=== PATIENT | female | born 1965 | race Caucasian/White ===

== ENCOUNTER 2017-08-04 13:38 | Emergency (ER) ==
[2017-08-04 13:45] VITALS: BP 157/96; TEMP 98.4; BMI 25.8
--- NOTE | 2017-08-04 15:11 | ED.PDOC ---
General ED Provider: Dr. BRENTON MINA Chief Complaint: Respiratory Complaint Stated Complaint: Chest wall pain with dyspnea. Sudden onset yesterday. This morning symptoms worsened and had sensation of having difficulty taking deep breath.Sensation pressure on chest. Denies Nause or emesis Time Seen by Physician: 13:45 Mode of Arrival: Walk-In Information Source: Patient Exam Limitations: No limitations Nursing and Triage Documentation Reviewed and Agree: Yes Reviewed sepsis parameters & appropriate labs ordered?: Yes System Inflammatory Response Syndrome: Not Applicable Sepsis Protocol: For patient's 13 years and over: Temp is 96.8 and below OR 101 and greater Pulse >90 BPM Resp >20/minute Acutely Altered Mental Status Are patient's symptoms suggestive of a new infection, such as: -Pneumonia -Skin, Soft Tissue -Endocarditis -UTI -Bone, Joint Infection -Implantable Device -Acute Abdominal Infection -Wound Infection -Meningitis -Blood Stream Catheter Infection -Unknown System Inflammatory Response Syndrome: Not Applicable Musculoskeletal Complaint Exam - Shoulder Pain Complaint/Exam Mechanism of Injury: Reports: No known trauma Onset/Duration: YESTERDAY Symptoms Are: Still present Timing: Constant Initial Severity: Moderate Current Severity: Moderate Location: Reports: Diffuse (POSTERIOR LT SHOULDER REGION OF UPPER THORACIC PARASPINOUS MUSCULATURE) Character: Reports: Aching, Spasmodic Alleviating: Reports: None Aggravating: Reports: Movement Associated Signs and Symptoms: Denies: Swelling, Redness, Bruising, Fever, Weakness, Numbness, Tingling Related History: Denies: Similar episode DVT Risk Factors: Reports: None Septic Arthritis Risk Factors: Reports: None Related Surgical History: Reports: None Shoulder Findings: Absent: Swelling, Ecchymosis, Abnormal contour Tenderness: Present: Clavicle Differential Diagnoses: Other (THORACIC MUSCULAR SPASM AND STRAIN) Review of Systems - Review Of Systems Constitutional: Reports: No symptoms Eyes: Reports: No symptoms Ears, Nose, Mouth, Throat: Reports: No symptoms Respiratory: Reports: No symptoms, Short of air Cardiac: Reports: No symptoms, Chest pain, Palpitations. Denies: Irregular heart rate, Lightheadedness, Syncope GI: Reports: No symptoms : Reports: No symptoms Musculoskeletal: Reports: Back pain, Muscle pain Skin: Reports: No symptoms Neurological: Reports: No symptoms Endocrine: Reports: No symptoms Hematologic/Lymphatic: Reports: No symptoms All Other Systems: Reviewed and Negative Past Medical History - Past Medical History Endocrine: Reports: None Cardiovascular: Reports: None Respiratory: Reports: None Hematological: Reports: None Gastrointestinal: Reports: None Genitourinary: Reports: None Neuro/Psych: Reports: None Musculoskeletal: Reports: None Cancer: Reports: None Last Menstrual Period: NA - Surgical History General Surgical History: Reports: None - Family History Family History: Reports: Heart, Hypertension - Social History Smoking Status: Current every day smoker Hx Substance Use: No Alcohol Screening: Occasionally Physical Exam - Physical Exam Appearance: Ill-appearing Ill-appearing: Mild Pain Distress: Moderate Eyes: STARLA, EOMI, Conjunctiva clear ENT: Ears normal, Nose normal, Oropharynx normal Neck: Nonsupple Respiratory: Airway patent, Breath sounds clear, Breath sounds equal, Breath sounds diminished, Respirations nonlabored Cardiovascular: RRR, Pulses normal, No murmur GI/: Soft, Nontender, No masses, Bowel sounds normal, No Organomegaly Musculoskeletal: Normal strength (Tenderness to palpation of upper lt thoracic region with focal pain at lt T 3-4-and focal somatic dysfunction; tx with counterstrain with resolution of patients discomfort), ROM intact, No edema, No calf tenderness Skin: Warm, Dry, Normal color, Pale Procedures - Additional Procedures Additional Procedures: Other (OMT-Tenderness to palpation of upper lt thoracic region with focal pain at lt T 3-4-and focal somatic dysfunction; tx with counterstrain with resolution of patients discomfort) Critical Care Note - Critical Care Note Total Time (mins): 0 Course - Course Hematology/Chemistry: 08/04/17 15:39 08/04/17 15:39 Orders, Labs, Meds: Lab Review 08/04/17 08/04/17 08/04/17 15:39 15:39 15:39 WBC 5.77 RBC 4.29 Hgb 14.1 Hct 40.6 MCV 94.6 MCH 32.9 H MCHC 34.7 RDW Coeff of [place] 13.0 Plt Count 161 Immature Gran % (Auto) 0.2 Neut % (Auto) 46.6 Lymph % (Auto) 41.4 [place] % (Auto) 9.0 Eos % (Auto) 2.1 Baso % (Auto) 0.7 Immature Gran # (Auto) 0.0 Neut # 2.7 Lymph # 2.4 [place] # 0.5 Eos # 0.1 Baso # 0.0 Sodium 142 Potassium 4.0 Chloride 106 Carbon Dioxide 29 Anion Gap 11.0 BUN 17 Creatinine 0.84 Estimated GFR (MDRD) 72.00 BUN/Creatinine Ratio 20.23 Glucose 90 Calcium 9.6 Total Bilirubin 0.4 AST 20 ALT 22 Alkaline Phosphatase 92 Troponin I < 0.0100 Total Protein 6.7 Albumin 3.9 Globulin 2.8 Albumin/Globulin Ratio 1.39 Urine Color Urine Clarity Urine pH Ur Specific [place] Urine Protein Urine Glucose (UA) Urine Ketones Urine Blood Urine Nitrite Urine Bilirubin Urine Urobilinogen Ur Leukocyte Esterase Urine Microscopic WBC Ur Squamous Epith Cells Urine Bacteria 08/04/17 17:40 WBC RBC Hgb Hct MCV MCH MCHC RDW Coeff of [place] Plt Count Immature Gran % (Auto) Neut % (Auto) Lymph % (Auto) [place] % (Auto) Eos % (Auto) Baso % (Auto) Immature Gran # (Auto) Neut # Lymph # [place] # Eos # Baso # Sodium Potassium Chloride Carbon Dioxide Anion Gap BUN Creatinine Estimated GFR (MDRD) BUN/Creatinine Ratio Glucose Calcium Total Bilirubin AST ALT Alkaline Phosphatase Troponin I Total Protein Albumin Globulin Albumin/Globulin Ratio Urine Color Yellow Urine Clarity Slightly Urine pH 5.5 Ur Specific [place] 1.015 Urine Protein Negative Urine Glucose (UA) Negative Urine Ketones Negative Urine Blood Negative Urine Nitrite Positive Urine Bilirubin Negative Urine Urobilinogen 0.2 Ur Leukocyte Esterase Trace Urine Microscopic WBC 2-5 Ur Squamous Epith Cells Not present Urine Bacteria 3+ Orders Category Date Time Status EKG-(ED ONLY) Stat CARDIO 08/04/17 15:07 Completed CBC W/ AUTO DIFF Stat LAB 08/04/17 15:39 Completed CMP [COMPREHENSIVE METABOLIC PANEL] Stat LAB 08/04/17 15:39 Completed TROPONIN I Stat LAB 08/04/17 15:39 Completed URINALYSIS C & S IF INDICATED Stat LAB 08/04/17 15:05 Uncollected URINE CULTURE Stat LAB 08/04/17 17:40 Received CHEST, 2 VIEWS PA & LAT Stat RADS 08/04/17 15:05 Completed Vital Signs: Temp Pulse Resp BP Pulse Ox 08/04/17 13:42 98.4 F 72 24 157/96 H 98 Departure - Departure Time of Disposition: 17:30 Disposition: HOME SELF-CARE Discharge Problem: Acute chest wall pain, Spasm of thoracic back muscle, Somatic dysfunction of thoracic region, Hilar adenopathy Instructions: Muscle Spasm (ED), Thoracic Back Strain (ED) Condition: Good Pt referred to PMD for follow-up: Yes (Dr Mccoy) IPMP verified?: No Additional Instructions: STOP SMOKING TAKE MEDS DIRECTED FOLLOW UP AT OFFICE OF DR HERNÁNDEZ NEXT WEEK OFF WORK FOR WEEKEND Prescriptions: Ibuprofen 600 mg PO Q6-8H PRN #30 tablet PRN Reason: pain Tizanidine HCl 4 mg PO Q8-12H PRN #30 tablet PRN Reason: Muscle spasm Allergies/Adverse Reactions: Allergies No Known Allergies Allergy (Unverified 08/04/17 13:42) Home Medications: Ambulatory Orders Ibuprofen 600 mg PO Q6-8H PRN #30 tablet 08/04/17 Tizanidine HCl 4 mg PO Q8-12H PRN #30 tablet 08/04/17
--- NOTE | 2017-08-04 15:48 | DI ---
EXAM: CHEST FRONTAL AND LATERAL VIEWS HISTORY: Chest pain. COMPARISON: 03/29/2016 FINDINGS: Heart size and mediastinal contour remain within normal limits. Lungs are mildly hyperin flated. No acute infiltrates or consolidated pneumonia. No pleural fluid, vascular congestion or pne umothorax. Nodular densities seen in the hilar region on the right which probably represents a combi nation of bronchovascular shadows and possibly a calcified lymph node. Other regional noncalcified m ass not excluded. IMPRESSION: No acute cardiopulmonary process. A prominent right hilar density probably represents s uperimposed benign structures. Consider follow-up chest radiography in 3 months to help exclude othe r etiology. No appropriate prior imaging was available for comparison currently.
== END 2017-08-04 17:55 | disposition home or self-care (01) ==
LOC: ED 13:38
DX: R07.89 Other chest pain (principal); R59.9 Enlarged lymph nodes, unspecified; M62.830 Muscle spasm of back; M99.02 Segmental and somatic dysfunction of thoracic region; R06.02 Shortness of breath; R00.2 Palpitations; I10 Essential (primary) hypertension; F17.210 Nicotine dependence, cigarettes, uncomplicated
CPT/HCPCS: 36415; 80053; 81001; 84484; 85025; 87086; 87186; 93005; 93010; 99283

== ENCOUNTER 2017-08-08 22:41 | Outpatient (CLI) | END 2017-08-08 22:42 | disposition home or self-care (01) | LOC: NONPT 22:41 | PROVIDERS: ATTEND Family Medicine | DX: N30.90 Cystitis, unspecified without hematuria (principal) | CPT/HCPCS: 87086 ==

== ENCOUNTER 2017-08-25 12:27 | Outpatient (CLI) | END 2017-08-25 12:28 | disposition home or self-care (01) | LOC: FCC-LAB 12:27 | PROVIDERS: ATTEND Family Medicine | DX: J06.9 Acute upper respiratory infection, unspecified (principal) | CPT/HCPCS: 87804 ==

== ENCOUNTER 2017-12-26 16:05 | Outpatient (CLI) | END 2017-12-26 16:06 | disposition home or self-care (01) | LOC: FCC-LAB 16:05 | PROVIDERS: ATTEND Family Medicine | DX: N30.90 Cystitis, unspecified without hematuria (principal) | CPT/HCPCS: 87086 ==

== ENCOUNTER 2018-04-18 08:52 | Outpatient (CLI) ==
--- NOTE | 2018-04-18 11:59 | DI ---
EXAM: Chest two view, frontal and lateral views. HISTORY: Pulmonary nodule follow-up. COMPARISON: 08/04/2017. FINDINGS: The heart size is normal. There is no pulmonary vascular congestion. The lungs are clear . Previously noted nodular density is not identified currently. No pleural effusion or pneumothorax is seen. No acute osseous abnormality identified. Clips and skin catracho seen over the upper abdom en. IMPRESSION: No acute cardiopulmonary process.
--- NOTE | 2018-04-19 09:40 | MAMMO ---
EXAM: Digital screening mammogram with tomosynthesis HISTORY: Screening COMPARISON: 05/17/2013 FINDINGS: Digital MLO and CC views of the right and left breast were performed. Tomosynthesis was p erformed. Computer aided detection utilized. There are scattered fibroglandular densities. Benign bi lateral calcifications. There is no evidence for mass, asymmetry, distortion, or suspicious calcific ations in either breast. IMPRESSION: 1. No evidence of malignancy in the right or left breast. 2. Annual screening mammogram is recommended in one year. BIRADS category 2, benign
== END 2018-04-18 08:53 | disposition home or self-care (01) ==
LOC: RAD 08:52
PROVIDERS: ATTEND Family Medicine
DX: Z12.31 Encounter for screening mammogram for malignant neoplasm of breast (principal)
CPT/HCPCS: 77067

== ENCOUNTER 2018-10-03 08:30 | Emergency (ER) | payer MEDICAID, OTHER ==
[2018-10-03 08:37] VITALS: BP 124/84; TEMP 100.5; BMI 27.3
--- NOTE | 2018-10-03 08:55 | ED.PDOC ---
General ED Provider: Dr. HILDA BARILLAS Chief Complaint: Sore Throat Stated Complaint: for 3 days hurting all over,back but no CVAmno dysuria,Fever, appeares dehydrateed with covered tongue.Malaised and visibly ill. Time Seen by Physician: 08:50 Mode of Arrival: Walk-In Information Source: Patient Exam Limitations: No limitations Primary Care Provider: SAGE BAUM Nursing and Triage Documentation Reviewed and Agree: Yes Does patient meet sepsis criteria?: No System Inflammatory Response Syndrome: Temp 101F or Greater Sepsis Protocol: For patient's 13 years and over: Temp is 96.8 and below OR 101 and greater Pulse >90 BPM Resp >20/minute Acutely Altered Mental Status Are patient's symptoms suggestive of a new infection, such as: -Pneumonia -Skin, Soft Tissue -Endocarditis -UTI -Bone, Joint Infection -Implantable Device -Acute Abdominal Infection -Wound Infection -Meningitis -Blood Stream Catheter Infection -Unknown Respiratory Complaint Exam - Respiratory Complaint/Exam Onset/Duration: 3 days past Symptoms Are: Still present Timing: Constant Initial Severity: Moderate Current Severity: Moderate Location: Throat, Chest Character: Reports: Dry cough Aggravating: Reports: URI, Weather Alleviating: Reports: None Associated Signs and Symptoms: Reports: Fever, Wheezing Related History: Reports: Similar episode History of Healthcare-Acquired Pneumonia: No Related Surgical History: Reports: None Cardiac Risk Factors: Reports: None Pseudomonas Risk Factors: Reports: Chronic steriod use Tuberculosis Risk Factors: Reports: None Status Asthmaticus Risk Factors: Reports: None Home Oxygen Use: No Recent Stress Test: No Recent Echo/LV Function: No Current Antibiotic Use: No Current Asthma Medication Use: No Respiratory Distress: None Inadequate Respiratory Effort: No Dysphagia Present: No Stridor Present: No JVD Present: No Accessory Muscle Use: No Retractions: Not Present Diminished Breath Sounds: Yes Prolonged Respiration: Expiratory phase Sinus Tenderness: None Grunting Respirations: No Kussmaul Respirations: No Differential Diagnoses: Asthma, COPD Exacerbation, Pneumonia, Bronchitis Review of Systems - Review Of Systems Constitutional: Reports: Fever Eyes: Reports: No symptoms Ears, Nose, Mouth, Throat: Reports: Throat pain Respiratory: Reports: Cough, Wheezing Cardiac: Reports: No symptoms GI: Reports: Abdominal pain : Reports: No symptoms Musculoskeletal: Reports: Back pain, Muscle stiffness Neurological: Reports: No symptoms Endocrine: Reports: No symptoms Hematologic/Lymphatic: Reports: No symptoms All Other Systems: Reviewed and Negative Past Medical History - Past Medical History Endocrine: Reports: None Cardiovascular: Reports: None Respiratory: Reports: None Hematological: Reports: None Gastrointestinal: Reports: None Genitourinary: Reports: None Neuro/Psych: Reports: None Musculoskeletal: Reports: None Cancer: Reports: None Last Menstrual Period: hysterectomy - Surgical History General Surgical History: Reports: None - Family History Family History: Reports: Heart, Hypertension - Social History Smoking Status: Current every day smoker, Heavy tobacco smoker Hx Substance Use: No Alcohol Screening: Occasionally Physical Exam - Physical Exam Appearance: Ill-appearing Ill-appearing: Moderate Pain Distress: Mild Eyes: STARLA ENT: Ears normal Neck: Supple Respiratory: Breath sounds diminished, Wheezes Cardiovascular: RRR GI/: No masses Musculoskeletal: Normal strength Skin: Warm, Dry Neurological: Sensation intact Psychiatric: Affect appropriate Critical Care Note - Critical Care Note Total Time (mins): 0 Course - Course Hematology/Chemistry: 10/03/18 09:40 10/03/18 09:40 Orders, Labs, Meds: Lab Review 10/03/18 10/03/18 10/03/18 08:45 09:40 09:40 WBC 7.52 RBC 4.86 Hgb 15.7 Hct 45.0 MCV 92.6 MCH 32.3 H MCHC 34.9 RDW Coeff of [place] 12.5 Plt Count 137 L Immature Gran % (Auto) 0.3 Neut % (Auto) 73.8 Lymph % (Auto) 15.4 [place] % (Auto) 10.1 H Eos % (Auto) 0.0 Baso % (Auto) 0.4 Immature Gran # (Auto) 0.0 Neut # (Auto) 5.6 Lymph # (Auto) 1.2 [place] # (Auto) 0.8 Eos # (Auto) 0.0 Baso # (Auto) 0.0 Sodium 137.4 Potassium 4.17 Chloride 102.1 Carbon Dioxide 26.5 Anion Gap 12.97 BUN 10.9 Creatinine 0.81 Estimated GFR (MDRD) 75.00 BUN/Creatinine Ratio 13.45 Glucose 104.8 Calcium 9.53 Total Bilirubin 1.02 AST 39.2 H ALT 32.0 Alkaline Phosphatase 107.0 Total Protein 7.28 Albumin 4.65 Globulin 2.63 Albumin/Globulin Ratio 1.76 Influ A Molecular Assay Negative by naat Influ B Molecular Assay Negative by naat Orders Category Date Time Status IV [ED IV/MEDIPORT/POWERPORT] .ONCE EMERGENCY 10/03/18 09:21 Active CBC W/ AUTO DIFF Stat LAB 10/03/18 09:40 Completed COMPREHENSIVE METABOLIC PANEL Stat LAB 10/03/18 09:40 Completed FLU A/B MOLECULAR Stat LAB 10/03/18 08:45 Completed RAPID STREP SCREEN [MOLECULAR GROUP A STREP] Stat LAB 10/03/18 08:45 Completed URINALYSIS C & S IF INDICATED Stat LAB 10/03/18 09:20 Uncollected 0.9 % Sodium Chloride [Saline Flush] MEDS 10/03/18 09:21 Active 1 syr IVF PRN PRN Acetaminophen [Tylenol] MEDS 10/03/18 11:15 Discontinued 650 mg PO ONCE STA Ceftriaxone Sodium [Rocephin] MEDS 10/03/18 10:43 Discontinued 1 gm .ROUTE .STK-MED ONE Ceftriaxone Sodium [Rocephin] 1 gm MEDS 10/03/18 10:27 Discontinued 0.9 % Sodium Chloride [Sodium Chloride] 50 ml IV ONCE Sodium Chloride 0.9% [Sodium Chloride] 1,000 ml MEDS 10/03/18 09:21 Discontinued IV BOLUS CHEST, 2 VIEWS PA & LAT Stat RADS 10/03/18 09:[address] ABDOMEN/PELVIS WO CONTRAST Stat RADS 10/03/18 09:18 Completed Medications Generic Name Dose Route Start Last Admin Trade Name Freq PRN Reason Stop Dose Admin Sodium Chloride 1 syr 10/03/18 09:21 10/03/18 09:46 Saline Flush IVF 1 syr PRN PRN Administration To flush IV Discontinued Medications Generic Name Dose Route Start Last Admin Trade Name Freq PRN Reason Stop Dose Admin Acetaminophen 650 mg 10/03/18 11:15 10/03/18 11:34 Tylenol PO 10/03/18 11:16 650 mg ONCE STA Administration Sodium Chloride 1,000 mls @ 1,000 mls/hr 10/03/18 09:21 10/03/18 09:46 Sodium Chloride IV 10/03/18 10:20 1,000 mls/hr BOLUS STA Administration Ceftriaxone Sodium 1 gm/ 50 mls @ 75 mls/hr 10/03/18 10:27 10/03/18 10:50 Sodium Chloride IV 10/03/18 11:06 75 mls/hr ONCE STA Administration Vital Signs: Temp Pulse Resp BP Pulse Ox 10/03/18 08:30 100.5 F H 102 H 20 124/84 97 Departure - Departure Time of Disposition: 11:52 Disposition: HOME SELF-CARE Discharge Problem: Pneumonia Instructions: Pneumonia (ED) Condition: Good Pt referred to PMD for follow-up: Yes (follow with PCP regardless in 2 days) IPMP verified?: No Allergies/Adverse Reactions: Allergies No Known Allergies Allergy (Verified 10/03/18 08:39) Home Medications: Ambulatory Orders 1 [No Reported Medications] 10/03/18 Disposition Discussed With: Patient, Family
[2018-10-03] MEDS ORDERED: SODIUM CHLORIDE 1,000 ML IV STA (09:21)
--- NOTE | 2018-10-03 09:57 | DI ---
EXAM: CHEST FRONTAL AND LATERAL VIEWS HISTORY: Wheezing, cough. COMPARISON: 04/18/2018 FINDINGS: Heart size and mediastinal contour within normal limits. No acute infiltrates. Mary l vascularity with no pleural fluid or pneumothorax. The bony thorax has no acute finding. IMPRESSION: No acute process.
--- NOTE | 2018-10-03 10:00 | CT ---
EXAM: CT abdomen pelvis without contrast HISTORY: Abdominal pain, right flank pain, fever COMPARISON: 04/02/2016 TECHNIQUE: CT abdomen pelvis performed without intravenous contrast. Coronal and sagittal reformatt ed images obtained. FINDINGS: Lingular consolidation and ground-glass infiltrate with mild nodularity in this region, mo st consistent with pneumonia. No free air. No acute abnormalities of the bones. Mild degenerative change in the spine. Evaluation organ parenchyma limited without contrast. Heart normal in size. L iver unremarkable. Patient status post cholecystectomy. Pancreas unremarkable. Spleen unremarkable . Adrenals unremarkable. Aorta normal in caliber. Patient status post hysterectomy. Small fat-con taining periumbilical hernia. Stomach unremarkable. No dilated loops small bowel. Appendix appears normal. Colonic diverticulosis. No hydronephrosis or nephrolithiasis. Mild left renal atrophy. B ilateral areas of renal cortical scarring, left greater than right, likely related to remote insult. No calculi visualized in normal course of the ureters. Bladder unremarkable. No inflammatory stran ding identified in the abdomen pelvis. Surgical changes in the anterior wall. IMPRESSION: 1. Lingular consolidation and ground-glass infiltrate with mild nodularity in this region, most cons istent with pneumonia. Recommend CT chest follow-up in 3 months to ensure resolution, given nodulari ty. 2. No hydronephrosis or nephrolithiasis. No acute abnormality identified in the abdomen pelvis. 4. Colonic diverticulosis. 5. Left renal atrophy. Bilateral areas of renal cortical scarring, left greater than right, likely related to remote insult.
[2018-10-03] MEDS ORDERED: ROCEPHIN 1 GM in SODIUM CHLORIDE 50 ML IV STA (10:27)
[2018-10-03] MEDS ORDERED: ROCEPHIN ONE (10:43)
[2018-10-03] MEDS ORDERED: TYLENOL PO STA (11:15)
== END 2018-10-03 11:58 | disposition home or self-care (01) ==
LOC: ED 08:30
DX: J18.9 Pneumonia, unspecified organism (principal); F17.210 Nicotine dependence, cigarettes, uncomplicated
CPT/HCPCS: 36415; 80053; 85025; 87502; 87651; 96361; 96365; 99283